=== PATIENT | male | born 1980 | race Caucasian/White ===

== ENCOUNTER 2018-05-13 08:05 | Day surgery (SDC) | payer MEDICAID ==
[~2018-05-13] VITALS: Ht 175.3 cm; Wt 90.7 kg
--- NOTE | ~2018-05-13 | OP ---
PATIENT NAME: VICENTA ESPINOZA MEDICAL RECORD: [id number] :80 LOCATION:[place] ADMISSION DATE: SURGEON: LOW WOODY MD DATE OF OPERATION: 05/13/2018 PREOPERATIVE DIAGNOSES: 1. Impingement syndrome of the left shoulder. 2. Rotator cuff tear of the left shoulder. 3. Acromioclavicular arthritis of the left shoulder. POSTOPERATIVE DIAGNOSES: 1. Impingement syndrome of the left shoulder. 2. Rotator cuff tear of the left shoulder. 3. Acromioclavicular arthritis of the left shoulder. PROCEDURE: 1. Arthroscopic rotator cuff repair of the left shoulder. 2. Arthroscopic distal clavicle excision done through separate incision - 1 cm left shoulder. 3. Arthroscopic subacromial decompression, acromioplasty and bursectomy. SURGEON: Low Woody MD ANESTHESIA: General. INTRAOPERATIVE COMPLICATIONS: None. SUMMARY OF PATHOLOGIC FINDINGS: Consistent with the preoperative MRI, the patient's full thickness rotator cuff tearing at the anterior fibers of the supraspinatus tendon consistent with exam as well. OPERATIVE SUMMARY IN DETAIL: After obtaining the appropriate preoperative orthopedic surgery consent as well as anesthetic consultation, evaluation and clearance, the patient was brought to the operating room and placed on the operating table in supine position. After general laryngeal mask administered, the patient was placed in right lateral decubitus position. All pressure points were well padded to include down leg peroneal pad as well as axillary roll. The patient was held firmly to the operating table using vacuum pack suction system. Left upper extremity and shoulder were then prepped and draped in routine sterile fashion. The arm was held in the [employer] traction boom at 30 degrees of forward flexion, 30 degrees of abduction with 10 pounds of traction laterally. Arthroscopy was established in the glenohumeral joint from the posterior portal. Anterior partial was established through the anterior safe interval. Diagnostic arthroscopy showed minimal, but probable labral fraying. Gentle debridement here was followed by establishing arthroscopy in the subacromial space. While on the subacromial space, accessory lateral portal was created. The surface tissue ablation system was utilized to denude the undersurface of the acromion of all soft tissue elements. It is of note that the coracoacromial ligament was excoriated. After it was denuded, a 5-0 bur was used to perform acromioplasty at the level of acromioclavicular joint. Through a separate anterior arthroscopic portal, distal clavicle was excised in the usual fashion arthroscopically. Attention then turned to the rotator cuff. After clearing away substantial amounts of bursitis, full thickness rotator cuff tearing was OPERATIVE REPORT [id number] VICENTA ESPINOZA noted. Decortication was carried out followed by horizontal mattress suture that was anchored laterally with 4.75 SwiveLock from [employer]. Having completed this, arthroscopy portals were closed in routine interrupted fashion using 4-0 Prolene. Sterile dressings were applied. The patient was awakened and taken to the recovery room in stable condition. All final needle and sponge counts were correct. TRANSINT:[id number] Voice Confirmation ID: [id number] DOCUMENT ID: [id number] LOW WOODY MD at 0930 CC: [id number] DICTATION DATE: 05/13/18 1140 BLOW MOLD OPERATOR: 05/13/18 1501 [facility] [place] 05/13/18 [facility] [address] [place] [address]
[2018-05-13 09:36] VITALS: BP 147/73; Ht 175.3 cm; Wt 90.7 kg
[2018-05-13] MEDS ORDERED: HYDROCODONE-APA1 TAB PO (11:36)
== END 2018-05-13 13:25 | disposition home or self-care (01) ==
LOC: D.OPS 08:05 → D.PAN 14:45
DX: M75.42 Impingement syndrome of left shoulder (principal); M75.122 Complete rotator cuff tear or rupture of left shoulder, not specified as traumatic; M13.812 Other specified arthritis, left shoulder; Z01.812 Encounter for preprocedural laboratory examination